=== PATIENT | male | born 1995 | race Caucasian/White ===

== ENCOUNTER 2018-09-16 09:36 | Emergency (ER) | payer SELFPAY ==
[2018-09-16 11:01] LABS: ACETAMINOPHEN < 2.0 ug/mL
[2018-09-16] MEDS ORDERED: Diphtheria,Pertussis(Acell),Tetanus Vaccine 0.5 ML SDV inactive IM ONE (11:51)
--- NOTE | 2018-09-16 19:28 | ER ---
HISTORY OF PRESENT ILLNESS: A 23-year-old male who comes in with his ex- girlfriend and another family member with complaints of suicidal ideation. The patient tells me that yesterday he started thinking about suicide. He does not have a plan to commit suicide at this time, but tells me that he is still thinking about this morning. He has been cutting himself on the left arm with a razor blade for the last 24 hours, the patient is not on any current medications. Family members with him tell me that his grandpa suddenly 2 days ago and the patient recently broke up with his girlfriend who was actually here with him for support. I understand they still get along quite well. The patient did have 1 previous history of attempting to hang himself when he was 15 or 16 years old. The patient has been living with a friend here in the [facility], who is not currently at home. He has been by himself. His family member here today tells me that she is very concerned about him being alone and that he will actually try to commit suicide instead of just doing the cutting behavior. OBJECTIVE: GENERAL APPEARANCE: The patient is awake. He is alert. He is quiet. He does answer questions. VITAL SIGNS: Reviewed. Initial blood pressure is in the 150/ 70 range. EXTREMITIES: Examining the patient's left arm reveals multiple superficial cuts to both the sides of the arm. He has approximately 100 or more cuts involving the entire length of the left arm. Some of these have a little bit of blood seeping from them, most of them are superficial and dry at this point. LUNGS: Clear. CARDIAC: Heart sounds distinct without murmurs. SKIN: Warm and dry. EYES: Pupils equal, round, and reactive to light. INITIAL TREATMENT: We consulted the [facility], and their staff did an evaluation on the patient. The consultants name is Vane. I spoke with her after the evaluation and we both agree that the patient could use some inpatient care at this point. He is on the verge of being unstable, but he is cooperative today. LABORATORY DATA: Labs today include CBC, CMP, TSH, tox screen, and ETOH. Test results are all negative. Blood pressure was rechecked with a reading of 139/76, pulse of 57. He is afebrile. Sats are 100%. At this point, arrangements were made for the patient to be referred for inpatient treatment. He is agreeing to go voluntarily and his ex- girlfriend who is here agrees to drive him down. They both agree this will work out well. [facility] and [facility] were both consulted and [facility] accepted the patient first. Therefore, that is where he will go by private car this afternoon. DIAGNOSIS: Suicidal ideation with cutting behavior. CRS/MODL /[id number] MTDKevin
== END 2018-09-16 14:56 | disposition home or self-care (01) ==
LOC: EEVIPCON 09:36 → LB.ED 09:36
DX: T14.91XA Suicide attempt, initial encounter (principal); X78.8XXA Intentional self-harm by other sharp object, initial encounter
CPT/HCPCS: 36415; 80048; 80307; 84443; 85025; 90471; 90715; 99284; G0480

== ENCOUNTER 2018-12-15 21:25 | Emergency (ER) | payer SELFPAY ==
[2018-12-15] MEDS ORDERED: QUEtiapine 25 MG Tab ONE (21:50)
--- NOTE | 2018-12-16 01:46 | ER ---
HISTORY OF PRESENT ILLNESS: A 23-year-old male here with his girlfriend with complaints of cutting behavior. The patient has cut his left forearm many times today. He states he was irritated. He was upset because he got into an argument with his brother. The patient tells me he has no thoughts of suicide or harming anyone else. The patient tells me he was just mad and did not know what else to do. The patient states he has done this before. He was seen in our facility in August. I saw the patient myself. At that time, there was cutting behavior with suicidal ideation. He was transferred for inpatient psych therapy in [place] and was started on Abilify 10 mg a day. He took it for 1 month and then told me that he could not continue taking it because he could not afford it. The patient states he is not currently working, but he knows he can go to social staff worker and probably get some help with medications. He was supposed to follow up in Behavioral Health with a counselor here locally after being discharged from [place], but he did not go to his appointment. OBJECTIVE: GENERAL APPEARANCE: The patient is awake and alert. He is quiet. He makes good eye contact and answers questions appropriately. VITAL SIGNS: Reviewed as listed. PHYSICAL EXAM: Examining the patient's left arm reveals multiple superficial cuts, most of these are scratches from the wrist to the elbow, there are many of them. There are few that go just slightly into the epidermis. There are a couple of drops of dried blood and some small scabbing noted, and few that are slightly deeper. There is no gaping of the skin and no sign of drainage. DIAGNOSIS: Cutting behavior with history of the same. TREATMENT PLAN: I will start the patient on Seroquel since we do not have Abilify in our facility, the dose will be 25 mg b.i.d. we will give him enough tablets to get him into Tuesday. Nursing did cleanse and apply antibiotic ointment and a dressing. to the patient's cuts. He is to keep the dressing on for at least 1 day longer if needed. Monitor for infection. The patient needs to follow up Tuesday in the clinic for a recheck, and at that point, his medication can be renewed, and he needs to get in touch with social staff worker and get an appointment in behavioral health, and lastly the patient did sign off on an emergency paper that we have here stating that he will not commit suicide. The patient is agreeable to this treatment plan and has no further questions. ROCÍO/INGRID /[id number] MTDD
== END 2018-12-15 22:02 | disposition home or self-care (01) ==
LOC: LB.ED 21:25
DX: S51.812A Laceration without foreign body of left forearm, initial encounter (principal); X78.9XXA Intentional self-harm by unspecified sharp object, initial encounter
CPT/HCPCS: 99283; A9270